=== PATIENT | male | born 1965 | race Caucasian/White ===

== ENCOUNTER 2016-06-28 12:32 | Outpatient (CLI) | payer MEDICAID | END 2016-06-28 12:33 | disposition home or self-care (01) | DX: F10.20 Alcohol dependence, uncomplicated (principal); I10 Essential (primary) hypertension; Z11.59 Encounter for screening for other viral diseases ==

== ENCOUNTER 2017-02-08 18:21 | Inpatient (IN) | payer MEDICAID ==
[2017-02-08] MEDS ORDERED: MAGNESIUM SULFATE 2 GRAM 50 ML IV STA (19:08)
[2017-02-08] MEDS ORDERED: MULTIVITAMIN 10 ML in SODIUM CHLORIDE 0.9% 1,000 ML IV STA (19:08)
[2017-02-08] MEDS ORDERED: LORazepam 2 MG/ML SYRINGE IVP STA ×3 (19:08→22:09)
[2017-02-08] MEDS ORDERED: THIAMINE INJ 100 MG, FOLIC ACID INJ 1 MG in SODIUM CHLORIDE 0.9% 100ML 100 ML IV STA (19:08)
--- NOTE | 2017-02-08 19:10 | ED Physician Documentation ---
History of Present Illness - Stated complaint Stated Complaint: ALCOHOL WITHDRAWAL - Chief complaint Chief Complaint: General - History obtained from History obtained from: Patient - History of Present Illness Timing: Other (He has been drinking heavily the last week or so, he does have a history of alcoholism. He has been drinking 20-40 beers a day. He presents feeling frustrated and wanting options for detoxification. Last drink was about 2 hours ago. He has been vomiting but no blood from either end and no dark or tarry stools.) Review of Systems Ten Systems: 10 systems reviewed and negative Constitutional: reports: Fatigue. denies: Fever, Chills Nose: denies: Rhinorrhea / runny nose, Congestion Throat: denies: Sore throat Cardiac: denies: Chest pain / pressure, Palpitations Respiratory: denies: Dyspnea, Cough PD PAST MEDICAL HISTORY - Past Medical History Past Medical History: No - Past Surgical History Past Surgical History: No - Present Medications Home Medications: Ambulatory Orders Medication Instructions Recorded Confirmed No Known Home Medications [No 02/08/17 02/08/17 Known Home Medications] - Allergies Allergies/Adverse Reactions: Allergies Allergy/AdvReac Type Severity Reaction Status Date / Time No Known Drug Allergies Allergy Verified 02/08/17 18:27 - Social History Does the pt smoke?: Yes Smoking Status: Current every day smoker Does the pt drink ETOH?: Yes ETOH Use: Wine, Beer Does the pt have substance abuse?: Yes Substance Use and Type: Marijuana - Family History Family history: reports: Non contributory PD ED PE NORMAL - Vitals Vital signs reviewed: Yes - General General: Alert and oriented X 3, No acute distress, Other (Hypertensive and tachycardic, mildly shaky despite slurred speech) - HEENT HEENT: PERRL, EOMI, Other (Sclera are anicteric and normal pallor) - Neck Neck: Supple, no meningeal sign, No bony TTP - Cardiac Cardiac: No murmur, Other (Tachycardic but regular, no murmur) - Respiratory Respiratory: No respiratory distress, Clear bilaterally - Abdomen Abdomen: Soft, Non tender - Back Back: No CVA TTP, No spinal TTP - Derm Derm: Normal color, Warm and dry - Extremities Extremities: No deformity, No tenderness to palpate, No edema, No calf tenderness / cord - Neuro Neuro: Alert and oriented X 3, Normal speech - Psych Psych: Normal mood, Normal affect Results - Vitals Vitals: Vital Signs - 24 hr 02/08/17 02/08/17 02/08/17 18:23 19:02 19:25 Temperature 36.8 C Heart Rate 114 H 122 H 167 H Respiratory 24 20 24 Rate Blood Pressure 195/111 H 181/104 H 161/72 H O2 Saturation 98 98 96 02/08/17 02/08/17 02/08/17 19:34 19:49 20:10 Temperature Heart Rate 177 H 160 H 170 H Respiratory 16 16 16 Rate Blood Pressure 151/70 H 152/122 H 148/87 H O2 Saturation 96 100 99 02/08/17 02/08/17 20:29 20:51 Temperature Heart Rate 108 H 11 L Respiratory 16 17 Rate Blood Pressure 166/89 H 168/92 H O2 Saturation 98 98 Oxygen O2 Source Room air - EKG (time done) 1951 Rate: Rate (enter#) (160) Rhythm: Atrial fibrillation [place]: Normal Ischemia: Non specific changes (lateral ST depression, prob rate related and long QT 508msec) Computer interpretation: Agree with computer 2021 Rate: Rate (enter#) (113) Rhythm: Sinus tachycardia [place]: Normal Intervals: Normal HI, Prolonged QT QRS: Normal Computer interpretation: Agree with computer - Labs Labs: Laboratory Tests 02/08/17 02/08/17 02/08/17 18:45 18:45 18:45 WBC 23.0 H RBC 5.13 Hgb 16.3 Hct 47.8 MCV 93.1 MCH 31.7 H MCHC 34.1 RDW 13.1 Plt Count 277 MPV 6.7 L Neut # Not Reportable Lymph # Not Reportable Coal # Not Reportable Eos # Not Reportable Baso # Not Reportable Absolute Nucleated RBC Not Reportable Band Neuts % (Manual) Not Reportable Nucleated RBCs Not Reportable Manual Slide Review Indicated Platelet Estimate NORMAL (130-450,000) Platelet Morphology NORMAL APPEARANCE RBC Morph Micro Appear NORMAL APPEARANCE PT 11.1 INR 1.0 Sodium 128 L Potassium 3.4 L Chloride 76 L* Carbon Dioxide 32 Anion Gap 20.0 H BUN 10 Creatinine 0.8 Estimated GFR (MDRD) 102 Glucose 124 H Calcium 9.4 Magnesium 2.2 Total Bilirubin 1.2 H AST 39 ALT 25 Alkaline Phosphatase 80 Troponin I Total Protein 8.8 H Albumin 5.0 Globulin 3.8 Albumin/Globulin Ratio 1.3 Lipase 20 L TSH Urine Opiates Screen Ur Oxycodone Screen Urine Methadone Screen Ur Propoxyphene Screen Ur Barbiturates Screen Ur Tricyclics Screen Ur Phencyclidine Scrn Ur Amphetamine Screen U Methamphetamines Scrn U Benzodiazepines Scrn Urine Cocaine Screen U Cannabinoids Screen Ethyl Alcohol 169.5 02/08/17 02/08/17 02/08/17 18:45 18:45 20:44 WBC RBC Hgb Hct MCV MCH MCHC RDW Plt Count MPV Neut # Lymph # Coal # Eos # Baso # Absolute Nucleated RBC Band Neuts % (Manual) Nucleated RBCs Manual Slide Review Platelet Estimate Platelet Morphology RBC Morph Micro Appear PT INR Sodium Potassium Chloride Carbon Dioxide Anion Gap BUN Creatinine Estimated GFR (MDRD) Glucose Calcium Magnesium Total Bilirubin AST ALT Alkaline Phosphatase Troponin I < 0.04 Total Protein Albumin Globulin Albumin/Globulin Ratio Lipase TSH 0.62 Urine Opiates Screen NEGATIVE Ur Oxycodone Screen NEGATIVE Urine Methadone Screen NEGATIVE Ur Propoxyphene Screen NEGATIVE Ur Barbiturates Screen NEGATIVE Ur Tricyclics Screen NEGATIVE Ur Phencyclidine Scrn NEGATIVE Ur Amphetamine Screen NEGATIVE U Methamphetamines Scrn NEGATIVE U Benzodiazepines Scrn NEGATIVE Urine Cocaine Screen NEGATIVE U Cannabinoids Screen POSITIVE H Ethyl Alcohol Procedures - Procedural sedation Sedation prep: Informed consent, Time out completed, PE performed, AHA 2 - mild disease Sedation medications: propofol (80mg IVP x 2) Patient status during sedation: Responds to tactile, Vitals remained stable, Maintained airway, Recovered uneventfully Sedation recovery: Recovered uneventfully - Cardioversion 1 Time of attempt: 20:10 Indication: Tachyarrhythmia Risks, benefits, alternatives explained to: Pt Prep: IV, O2, vehicle monitor technician, Pulse ox, Airway equip Meds: Propofol (80mg IVP x2) CS via: Pads, AP approach Sync: 100j Post cardioversion rhythm: NSR Performed by: ED MD MEDICAL DECISION MAKING - ED course ED course: On initial evaluation he was tachycardic and hypertensive, but was a sinus tachycardia on the monitor rate of about 110-120. He was ordered to have a banana bag, Ativan, labs. Shortly thereafter, about 7:15 PM he became very tachycardic, near 200. It was a narrow complex tachycardia. Vagal maneuvers had no effect and he was administered 6 mg then 12 mg of adenosine, after 12 mg of adenosine I was able to identify atrial fibrillation as the underlying rhythm and he was administered diltiazem IV. He was given more doses of diltiazem IV which did not result in rate control but brought him down to the 160 range, after informed consent he was electrically cardioverted with sinus rhythm after this first attempt, call to the hospitalist, Dr. Ch for admission at 8:19 PM. - Critical Care Time(min): 48 Time Includes: Direct patient care, Review records, Reassess patient, Document care, Coordinate care, Medical consult, Family consult for tx dec Procedures included in critical care time: Peripheral IV Procedures excluded from critical care time: EKG Departure - Departure Disposition: 66 [facility] DC/Xfer Clinical Impression: Rapid atrial fibrillation, Hypochloremia Alcohol withdrawal Qualifiers: Complication of substance-induced condition: uncomplicated Qualified Code(s): F10.230 - Alcohol dependence with withdrawal, uncomplicated Condition: Serious
[2017-02-08] MEDS ORDERED: LORazepam 2 MG/ML SYRINGE ONE ×2 (19:15→21:38)
[2017-02-08] MEDS ORDERED: ADENOSINE 6 MG/2 ML VIAL IVP ONE (19:18)
[2017-02-08] MEDS ORDERED: diltiaZEM INJ 5 MG/ML VIAL IVP STA ×3 (19:18→19:36)
[2017-02-08] MEDS ORDERED: ADENOSINE 6 MG/2 ML VIAL IVP STA ×2 (19:18)
[2017-02-08 19:20] LABS: BASOPHILS % (AUTO) 0.1 %; HCT - HEMATOCRIT 47.8 % (42.0-52.0); HGB - HEMOGLOBIN 16.3 g/dL (14.0-18.0); LYMPHOCYTES % (AUTO) 5.1 %; MEAN CORPUSCULAR HEMOGLOBIN 31.7 pg (27.0-31.0); MEAN CORPUSCULAR HGB CONC 34.1 g/dL (32.0-36.0); MEAN CORPUSCULAR VOLUME 93.1 fL (80.0-94.0); MEAN PLATELET VOLUME 6.7 fL (7.4-11.4); MONOCYTES % (AUTO) 4.7 %; NEUTROPHILS % (AUTO) 90.1 %; RED BLOOD COUNT 5.13 10^6/uL (4.70-6.10); RED CELL DISTRIBUTION WIDTH 13.1 % (12.0-15.0)
[2017-02-08] MEDS ORDERED: diltiaZEM INJ 5 MG/ML VIAL ONE ×2 (19:22→19:49)
[2017-02-08] MEDS ORDERED: SODIUM CHLORIDE FLUSH 0.9% 10 ML SYRINGE IVP ONE (19:23)
[2017-02-08 19:26] LABS: PT - PROTHROMBIN TIME 11.1 secs (9.9-12.6)
[2017-02-08] MEDS ORDERED: MAGNESIUM SULFATE 2 GRAM 50 ML IV ONE (19:32)
[2017-02-08 19:34] LABS: ALBUMIN/GLOBULIN RATIO 1.3 (1.0-2.2); BILIRUBIN,TOTAL 1.2 mg/dL (0.2-1.0); CALCIUM 9.4 mg/dL (8.5-10.3); CREATININE 0.8 mg/dL (0.6-1.2); MAGNESIUM 2.2 mg/dL (1.7-2.8); POTASSIUM 3.4 mmol/L (3.5-5.0); TOTAL PROTEIN 8.8 g/dL (6.7-8.2)
[2017-02-08 19:48] LABS: PLATELET ESTIMATE, MANUAL NORMAL (130-450,000) (NORMAL); PLATELET MORPHOLOGY NORMAL APPEARANCE (NORMAL)
[2017-02-08 19:49] LABS: NP AUTO DIFFERENTIAL? NO; NP MAN DIFFERENTIAL? YES
[2017-02-08] MEDS ORDERED: PROPOFOL 200 MG/20 ML VIAL IVP ONE (20:01)
[2017-02-08] MEDS ORDERED: THIAMINE 100 MG/1 ML 2 ML MDV ONE (20:01)
[2017-02-08] MEDS ORDERED: PROPOFOL 200 MG/20 ML VIAL IVP STA (20:16)
[2017-02-08] MEDS ORDERED: PROMETHAZINE INJ 25 MG in SODIUM CHLORIDE 0.9% 50 ML IV STA (20:41)
[2017-02-08] MEDS ORDERED: PROMETHAZINE 25 MG/1 ML VIAL ONE (20:48)
[2017-02-08] MEDS ORDERED: POTASSIUM CHLOR 20 MEQ/100 ML 100 ML IV SCH (21:55)
[2017-02-08] MEDS ORDERED: diazePAM 5 MG TABLET PO PRN (21:58)
[2017-02-08] MEDS ORDERED: TEMAZEPAM 15 MG CAPSULE PO PRN (22:03)
[2017-02-08] MEDS ORDERED: PROMETHAZINE 25 MG/1 ML VIAL IV PRN (22:03)
[2017-02-08] MEDS ORDERED: ASPIRIN 325 MG TABLET PO SCH (22:10)
--- NOTE | 2017-02-08 23:22 | HISTORY & PHYSICAL EXAMINATION ---
DATE OF ADMISSION: 02/08/2017 CHIEF COMPLAINT: Abdominal pain and going into alcohol withdrawal. HISTORY OF PRESENT ILLNESS: The patient is a 51-year-old white male with past medical history of longstanding alcohol abuse, who presented to [facility] complaining of going into alcohol withdrawal. The patient reported that he has been drinking since age 14. He participated in a detox program about 20 years ago. Since then, he has been drinking on and off. Started to drink heavily about a week ago and then he stopped a few days ago, he developed shakes, anxiety, and recognized symptoms of alcohol withdrawal. On further interview, the patient reported having chest discomfort and abdominal pain as well. He has no history of heart disease. As far as his alcohol consumption, he admitted to drinking about 40 beers daily. Upon presenting to the ER the patient appeared shaky and anxious. Initially he was hypertensive with blood pressure 195/111. His heart rate was 115. During the ER stay, his heart rate increased to the 200 range. Initially he was thought to have SVT, received vagal maneuvers without any effect on his heart rate and subsequently received adenosine as well. Besides all that, his alcohol withdrawal was treated with lorazepam. In any case, adenosine briefly slowed the heart rate and at that time monitor showed atrial fibrillation. Therefore, the patient was given diltiazem. Subsequently, his heart rate remained high, although his blood pressure never dropped below 150. The ER physician decided to do electric cardioversion. After cardioversion the patient remained stable, and when I was at the bedside, his heart rate was around 120. During my exam, the patient appeared somnolent with altered mental status and other than the above-listed symptoms, he provided no further history. Reviewing the ER record, the patient had significant electrolyte abnormalities including sodium of 128, chloride 76. Potassium was 3.4. White blood cell count was elevated at 23. Notably, initial troponin was negative. Urine toxicology was positive for cannabinoid. Alcohol level was 169. TSH was unremarkable. EKG showed no acute ischemic sign. The EKG I reviewed showed a heart rate of 160. Possibly SVT versus atrial fibrillation. PAST MEDICAL HISTORY: Chronic alcohol use. OUTPATIENT MEDICATIONS: The patient takes no medications. REVIEW OF SYMPTOMS: Please see pertinent positives listed at history of present illness. Notably, the patient was a poor historian. Besides the above-listed symptoms he complained of nausea, was dry heaving during my exam. He fell asleep easily. Reporting no other complaints on a 12-point review. FAMILY HISTORY: Positive for alcohol abuse. Coronary artery disease on the mother's side of the family. SOCIAL HISTORY: The patient smokes marijuana and drinks alcohol since age 14. PHYSICAL EXAMINATION VITAL SIGNS: Heart rate between 100 and 200, blood pressure 150/90, respiratory rate 16, oxygen saturation 99% on 4 liters nasal cannula, 97% on room air. GENERAL: The patient is a well-developed male who appeared somnolent, had flushed face, and had been dry heaving during my exam. CARDIOVASCULAR: S1, S2 regular fast rate. RESPIRATORY: Clear to auscultation without wheezes or crackles. ABDOMEN: Soft, benign with mild epigastric tenderness. No guarding, no rebound. LYMPH: No lymphedema. MUSCULOSKELETAL: Appeared atraumatic. SKIN: Flushed face, diaphoretic, no rash. No jaundice. NEUROLOGIC: The patient was somnolent and fell asleep easily during my exam, but when aroused, he was alert and answered questions appropriately. Neurologically, nonfocal. PSYCH: Cooperative, anxious. ASSESSMENT AND PLAN/ACTIVE ISSUES/DIAGNOSES AND ORDERS 1. Uncontrolled hypertension with tachyarrhythmia. Notably, the patient initially had supraventricular tachycardia, perhaps he had atrial fibrillation as well. In the emergency room he was cardioverted. His hyperdynamic circulation is likely secondary to acute alcohol withdrawal. For now we will control heart rate and blood pressure with propranolol considering the reason being alcohol withdrawal. Regarding the atrial fibrillation, we will check one more set of cardiac markers, notably the first set was negative. Will give one dose of aspirin. The patient will be monitored closely on telemetry. For additional workup we will check an echocardiogram. This patient being a beer drinker for several years, has risk for nonischemic cardiomyopathy. Regarding other issues contributing to atrial fibrillation, electrolytes were abnormal and will be replaced. TSH was unremarkable. 2. Acute, severe alcohol withdrawal, will require ICU admission. Appropriate order set was placed. Alcohol withdrawal orders initiated. Electrolytes are being replaced and laboratories checked daily. 3. Abnormal electrolytes including hyponatremia, hypochloremia, and mild hypokalemia. This is likely secondary to beer drinkers hyponatremia. We will replace electrolytes and repeat laboratories. Notably, magnesium was replaced as well. 4. Regarding patient complaining of mild epigastric pain, this is likely secondary to alcoholic gastritis. On exam, abdomen was benign. Liver function tests showed minimally elevated total bilirubin, otherwise unremarkable. Lipase was normal as well. 5. Leukocytosis. This is likely reactive; however, in the setting of alcohol withdrawal, patient will have risk for aspiration. Therefore, we will check chest x-ray, and we will send cultures if not already done from the emergency room. 6. Regarding prophylaxis, added proton pump inhibitor for gastrointestinal prophylaxis, and deep venous thrombosis prophylaxis. 7. Regarding possibility of alcoholic gastritis, also added Sucralfate. 8. CODE STATUS IS FULL CODE. Time spent in the care of this patient was 65 minutes. JOB #: [id number] EXT JOB #:[id number]
[2017-02-08 23:25] LABS: CREATINE KINASE MB 8.4 ng/mL (0.6-6.3)
[2017-02-08 23:26] LABS: TROPONIN I < 0.04 ng/mL (<0.49)
[2017-02-08] MEDS: PROPRANOLOL 10 MG TABLET PO SCH (23:32)
[2017-02-08] MEDS: PANTOPRAZOLE 40 MG TABLET PO SCH (23:32)
[2017-02-08] MEDS: chlordiazePOXIDE 25 MG CAPSULE PO SCH (23:34)
[2017-02-08 23:39] LABS: PT - PROTHROMBIN TIME 10.9 secs (9.9-12.6)
[2017-02-08] MEDS: NS W/20 MEQ KCL 1,000 ML IV SCH (23:59)
--- NOTE | 2017-02-09 | XRAY Preliminary Report ---
Exam: XR Chest 2 View PA/LAT IMPRESSION: No acute cardiopulmonary disease seen. [facility] SITE ID: [id number]
--- NOTE | 2017-02-09 00:03 | XRAY Report ---
EXAM: CHEST RADIOGRAPHY EXAM DATE: 02/08/2017 11:14 PM. CLINICAL HISTORY: Question aspiration. COMPARISON: None. TECHNIQUE: 2 views. FINDINGS: Lungs/Pleura: No focal opacities evident. No pleural effusion. No pneumothorax. Normal volumes. Mediastinum: Heart and mediastinal contours are unremarkable. IMPRESSION: No acute cardiopulmonary disease seen. [facility] Referring Provider Line: [phone] SITE ID: [id number]
[2017-02-09] MEDS: LORazepam 2 MG/ML SYRINGE IVP PRN ×3 (00:31→09:15)
[2017-02-09 05:34] LABS: BASOPHILS % (AUTO) 0.2 %; HCT - HEMATOCRIT 42.6 % (42.0-52.0); HGB - HEMOGLOBIN 14.6 g/dL (14.0-18.0); LYMPHOCYTES # (AUTO) 0.9 10^3/uL (1.5-3.5); LYMPHOCYTES % (AUTO) 6.2 %; MEAN CORPUSCULAR HEMOGLOBIN 32.3 pg (27.0-31.0); MEAN CORPUSCULAR HGB CONC 34.4 g/dL (32.0-36.0); MEAN PLATELET VOLUME 6.8 fL (7.4-11.4); MONOCYTES # (AUTO) 0.7 10^3/uL (0.0-1.0); MONOCYTES % (AUTO) 4.7 %; NEUTROPHILS # (AUTO) 12.7 10^3/uL (1.5-6.6); NEUTROPHILS % (AUTO) 88.9 %; NUCLEATED RED BLOOD CELLS AUTO 0.2 /100WBC; RED BLOOD COUNT 4.53 10^6/uL (4.70-6.10); RED CELL DISTRIBUTION WIDTH 13.4 % (12.0-15.0); UNCORRECTED WHITE BLOOD COUNT 14.2 x10^3/uL; WHITE BLOOD COUNT 14.2 x10^3/uL (4.8-10.8)
[2017-02-09] MEDS: PANTOPRAZOLE 40 MG TABLET PO SCH ×2 (05:40→15:18)
[2017-02-09] MEDS: chlordiazePOXIDE 25 MG CAPSULE PO SCH ×4 (05:40→23:34)
[2017-02-09] MEDS: SODIUM CHLORIDE FLUSH 0.9% 10 ML SYRINGE IVP PRN (05:43)
[2017-02-09] MEDS: SODIUM CHLORIDE FLUSH 0.9% 10 ML SYRINGE IVP SCH ×3 (05:43→21:03)
[2017-02-09 05:52] LABS: ALBUMIN/GLOBULIN RATIO 1.3 (1.0-2.2); BILIRUBIN,TOTAL 2.3 mg/dL (0.2-1.0); CALCIUM 8.4 mg/dL (8.5-10.3); CREATININE 0.8 mg/dL (0.6-1.2); PHOSPHORUS 3.1 mg/dL (2.5-4.6); POTASSIUM 3.2 mmol/L (3.5-5.0)
[2017-02-09] MEDS ORDERED: POTASSIUM CHLORIDE 20 MEQ TABLET PO ONE (06:00)
[2017-02-09 06:24] LABS: CALCIUM, IONIZED 1.01 mmol/L (1.15-1.33); VBG PH 7.533 (7.31-7.41)
[2017-02-09] MEDS: NS W/20 MEQ KCL 1,000 ML IV SCH ×3 (06:24→21:21)
[2017-02-09] MEDS: SUCRALFATE 1 GM/10 ML UDC PO SCH ×4 (06:24→21:03)
[2017-02-09] MEDS ORDERED: CALCIUM GLUCONATE 1,000 MG in SODIUM CHLORIDE 0.9% 50 ML IV SCH ×2 (06:38→08:00)
[2017-02-09] MEDS ORDERED: PROMETHAZINE 25 MG/1 ML VIAL IM PRN (07:37)
[2017-02-09] MEDS: THIAMINE 100 MG TABLET PO SCH (08:38)
[2017-02-09] MEDS: PRENATAL VITAMIN TABLET PO SCH (08:38)
[2017-02-09] MEDS: ENOXAPARIN 40 MG/0.4 ML SYRINGE SUBQ SCH (08:38)
[2017-02-09] MEDS: PROPRANOLOL 10 MG TABLET PO SCH (08:38)
[2017-02-09] MEDS ORDERED: POTASSIUM CHLOR 20 MEQ/100 ML 100 ML IV SCH (09:00)
[2017-02-09] MEDS: ONDANSETRON 4 MG/2 ML VIAL IVP PRN (09:02)
[2017-02-09] MEDS: NICOTINE 14 MG PATCH TOP SCH (14:49)
--- NOTE | 2017-02-09 17:12 | PROVIDER PROGRESS NOTE ---
Assessment/Plan - Problem List (1) Alcohol withdrawal Qualifiers: Complication of substance-induced condition: uncomplicated Qualified Code(s ): F10.230 - Alcohol dependence with withdrawal, uncomplicated Assessment/Plan: Pt on Librium during withdrawl. Pt is arousable and able to take diet and po meds. Will continue iv fluids given tachycardia at rest. Will change Propranolol to a longer acting B-linette. Continue K replacement and Thiamine, Folate. The mother confirms that Pt is wanting to be transferred to an Alcohol Detox unit, after he is medically cleared. (2) Rapid atrial fibrillation Assessment/Plan: No recurrence of Afib after Cardioverted in ER yesterday. Normal troponins and TSH. Echo shows low-normal LVEF. Etiology may be alcohol binge drinking (I spoke to his mother who confirmed that Pt was drinking 20-40 beers/day and taking nearly no solids for the past 7- 10 days) The patient's CHADS score is 1 (HTN), and is on ASA now. Will check a free T4. Will change Propranolol to a longer acting B-linette. Pt can be transferred to a Med-Surg telemetry bed. (3) HTN (hypertension) Qualifiers: Hypertension type: unspecified Qualified Code(s): I10 - Essential (primary ) hypertension Assessment/Plan: Possibly due to alcohol withdrawal vs Essential HTN. BP has improved with sedation and low doses of B-linette. (4) Alcoholic gastritis Qualifiers: Chronicity: unspecified Assessment/Plan: Presumed, due to presentation with binging. Continue Carafate and H2 blockers. - Current Meds Current Meds: Current Medications Generic Name Dose Route Start Last Admin Trade Name Freq PRN Reason Stop Dose Admin Chlordiazepoxide HCl 50 mg 02/09/17 00:00 02/09/17 12:02 Librium PO 50 mg Q6HR ALLEN Administration Enoxaparin Sodium 40 mg 02/09/17 09:00 02/09/17 08:38 Lovenox SUBQ 40 mg DAILY ALLEN Administration Potassium Chloride/Sodium Chloride 1,000 mls @ 125 mls/hr 02/08/17 22:00 13:41 Normal Saline 0.9% W/20 Meq Kcl IV 125 mls/hr .Q8H ALLEN Administration Lorazepam 1 mg 02/08/17 21:58 02/09/17 09:15 Ativan Inj IVP 1 mg Q30M PRN Administration CIWA > 8 Protocol Nicotine 1 patch 02/09/17 14:30 02/09/17 14:49 Nicoderm TOP 1 patch DAILY ALLEN Administration Ondansetron HCl 4 mg 02/08/17 22:03 02/09/17 09:02 Zofran Inj IVP 4 mg Q6HR PRN Administration Nausea / Vomiting Pantoprazole Sodium 40 mg 02/08/17 23:00 02/09/17 15:18 Protonix PO 40 mg BIDAC ALLEN Administration Multivit/Folic Acid/Iron 1 tab 02/09/17 09:00 02/09/17 08:38 Trinatal Rx 1 PO 1 tab DAILY ALLEN Administration Propranolol HCl 20 mg 02/08/17 23:00 02/09/17 08:38 Inderal PO 20 mg BID ALLEN Administration Sodium Chloride 10 ml 02/08/17 22:03 02/09/17 05:43 Normal Saline Flush 0.9% IVP 10 ml PRN PRN Administration NEEDED PER PROVIDER ORDERS Sodium Chloride 10 ml 02/09/17 06:00 02/09/17 13:42 Normal Saline Flush 0.9% IVP 10 ml Q8HR ALLEN Administration Sucralfate 1 gm 02/09/17 07:00 02/09/17 15:19 Carafate PO 1 gm 0700,1100,1600,2200 ALLEN Administration Thiamine HCl 100 mg 02/09/17 09:00 02/09/17 08:38 Vitamin B-1 PO 100 mg DAILY ALLEN Administration - Lab Result Fish Bone Diagrams: 02/09/17 04:43 02/09/17 04:43 - Additional Planning My Orders: My Active Orders 02/09/17 14:28 Telemetry (24 Hour) [RC] Q4HR 02/09/17 14:30 Nicotine 14 mg Patch [Nicoderm] 1 patch TOP DAILY 02/10/17 05:00 BMP - BASIC METABOLIC PANEL [CHEM] DAILYLAB Subjective - Subjective Patient Reports: No Complaints Nursing Reports: No Complaints, Sedated, Other Objective Vital Signs: Vital Signs - 24 hr 02/08/17 02/08/17 02/08/17 22:22 22:43 23:20 Temperature 37.5 C 37.3 C Heart Rate 126 H Heart Rate [ 102 H 111 H Monitoring electrodes] Respiratory 21 17 20 Rate Blood Pressure 158/87 H Blood Pressure 140/88 H [Left Brachial artery] Blood Pressure 132/77 H [Right] O2 Saturation 97 96 98 02/09/17 02/09/17 02/09/17 00:00 01:00 02:10 Temperature Heart Rate Heart Rate [ 90 87 87 Monitoring electrodes] Respiratory 17 19 18 Rate Blood Pressure Blood Pressure 139/93 H 126/71 150/89 H [Left Brachial artery] Blood Pressure 126/71 150/89 H [Right] O2 Saturation 97 95 95 02/09/17 02/09/17 02/09/17 03:00 04:00 05:00 Temperature Heart Rate Heart Rate [ 81 90 81 Monitoring electrodes] Respiratory 17 26 H 18 Rate Blood Pressure Blood Pressure 140/85 H 129/78 131/93 H [Left Brachial artery] Blood Pressure 140/85 H 129/78 131/93 H [Right] O2 Saturation 97 96 95 02/09/17 02/09/17 02/09/17 06:00 07:00 08:00 Temperature Heart Rate Heart Rate [ 84 84 77 Monitoring electrodes] Respiratory 14 19 20 Rate Blood Pressure Blood Pressure 145/85 H 142/94 H 155/92 H [Left Brachial artery] Blood Pressure [Right] O2 Saturation 98 97 99 02/09/17 02/09/17 02/09/17 09:00 10:00 11:00 Temperature 37.4 C Heart Rate Heart Rate [ 82 83 80 Monitoring electrodes] Respiratory 16 18 20 Rate Blood Pressure Blood Pressure 138/95 H 123/78 158/89 H [Left Brachial artery] Blood Pressure [Right] O2 Saturation 97 100 97 02/09/17 02/09/17 02/09/17 12:00 13:00 14:00 Temperature Heart Rate Heart Rate [ 73 83 83 Monitoring electrodes] Respiratory 20 20 16 Rate Blood Pressure Blood Pressure 147/97 H 142/85 H 125/72 [Left Brachial artery] Blood Pressure [Right] O2 Saturation 97 98 96 02/09/17 02/09/17 02/09/17 15:00 16:00 16:56 Temperature 37.0 C Heart Rate Heart Rate [ 75 82 83 Monitoring electrodes] Respiratory 18 20 19 Rate Blood Pressure Blood Pressure 144/96 H 140/86 H 145/89 H [Left Brachial artery] Blood Pressure [Right] O2 Saturation 99 96 94 Oxygen O2 Source Room air I&O (Last 24 Hrs): Intake and Output Totals x24h 02/07/17 02/08/17 02/09/17 23:59 23:59 23:59 Intake Total 3168 Output Total 3365 Balance -197 General: Other (Sedated) HEENT: Atraumatic Neck: Supple, No JVD Cardiovascular: Regular rate, No murmurs Respiratory: No respiratory distress Abdomen: Soft Extremities: No edema - Results Results: Laboratory Results WBC 14.2 x10^3/uL (4.8-10.8) H 02/09/17 04:43 RBC 4.53 10^6/uL (4.70-6.10) L 02/09/17 04:43 Hgb 14.6 g/dL (14.0-18.0) 02/09/17 04:43 Hct 42.6 % (42.0-52.0) 02/09/17 04:43 MCV 94.0 fL (80.0-94.0) 02/09/17 04:43 MCH 32.3 pg (27.0-31.0) H 02/09/17 04:43 MCHC 34.4 g/dL (32.0-36.0) 02/09/17 04:43 RDW 13.4 % (12.0-15.0) 02/09/17 04:43 Plt Count 193 10^3/uL (130-450) 02/09/17 04:43 MPV 6.8 fL (7.4-11.4) L 02/09/17 04:43 Neut # 12.7 10^3/uL (1.5-6.6) H 02/09/17 04:43 Lymph # 0.9 10^3/uL (1.5-3.5) L 02/09/17 04:43 Bee # 0.7 10^3/uL (0.0-1.0) 02/09/17 04:43 Eos # 0.0 10^3/uL (0.0-0.7) 02/09/17 04:43 Baso # 0.0 10^3/uL (0.0-0.1) 02/09/17 04:43 Absolute Nucleated RBC 0.03 x10^3/uL 02/09/17 04:43 Band Neuts % (Manual) Not Reportable 02/08/17 18:45 Nucleated RBCs 0.2 /100WBC 02/09/17 04:43 Manual Slide Review Indicated 02/08/17 18:45 Platelet Estimate NORMAL (130-450,000) (NORMAL) 02/08/17 18:45 Platelet Morphology NORMAL APPEARANCE (NORMAL) 02/08/17 18:45 RBC Morph Micro Appear NORMAL APPEARANCE (NORMAL) 02/08/17 18:45 PT 10.9 secs (9.9-12.6) 02/08/17 22:56 INR 1.0 (0.8-1.2) 02/08/17 22:56 VBG pH 7.533 (7.31-7.41) H 02/09/17 06:16 Ionized Calcium 1.01 mmol/L (1.15-1.33) L 02/09/17 06:16 Sodium 132 mmol/L (135-145) L 02/09/17 04:43 Potassium 3.2 mmol/L (3.5-5.0) L 02/09/17 04:43 Chloride 90 mmol/L (101-111) L 02/09/17 04:43 Carbon Dioxide 32 mmol/L (21-32) 02/09/17 04:43 Anion Gap 10.0 (6-13) 02/09/17 04:43 BUN 12 mg/dL (6-20) 02/09/17 04:43 Creatinine 0.8 mg/dL (0.6-1.2) 02/09/17 04:43 Estimated GFR (MDRD) 102 (>89) 02/09/17 04:43 Glucose 97 mg/dL (70-100) 02/09/17 04:43 Calcium 8.4 mg/dL (8.5-10.3) L 02/09/17 04:43 Phosphorus 3.1 mg/dL (2.5-4.6) 02/09/17 04:43 Magnesium 2.5 mg/dL (1.7-2.8) 02/09/17 04:43 Total Bilirubin 2.3 mg/dL (0.2-1.0) H 02/09/17 04:43 AST 29 IU/L (10-42) 02/09/17 04:43 ALT 22 IU/L (10-60) 02/09/17 04:43 Alkaline Phosphatase 64 IU/L (42-121) 02/09/17 04:43 CK-MB (CK-2) 8.4 ng/mL (0.6-6.3) H 02/08/17 22:56 Troponin I < 0.04 ng/mL (<0.49) 02/08/17 22:56 Total Protein 7.0 g/dL (6.7-8.2) 02/09/17 04:43 Albumin 4.0 g/dL (3.2-5.5) 02/09/17 04:43 Globulin 3.0 g/dL (2.1-4.2) 02/09/17 04:43 Albumin/Globulin Ratio 1.3 (1.0-2.2) 02/09/17 04:43 Lipase 20 U/L (22-51) L 02/08/17 18:45 TSH 0.62 uIU/mL (0.34-5.60) 02/08/17 18:45 Free T4 0.90 ng/dL (0.58-1.64) 02/09/17 05:30 Urine Opiates Screen NEGATIVE (NEGATIVE) 02/08/17 20:44 Ur Oxycodone Screen NEGATIVE (NEGATIVE) 02/08/17 20:44 Urine Methadone Screen NEGATIVE (NEGATIVE) 02/08/17 20:44 Ur Propoxyphene Screen NEGATIVE (NEGATIVE) 02/08/17 20:44 Ur Barbiturates Screen NEGATIVE (NEGATIVE) 02/08/17 20:44 Ur Tricyclics Screen NEGATIVE (NEGATIVE) 02/08/17 20:44 Ur Phencyclidine Scrn NEGATIVE (NEGATIVE) 02/08/17 20:44 Ur Amphetamine Screen NEGATIVE (NEGATIVE) 02/08/17 20:44 U Methamphetamines Scrn NEGATIVE (NEGATIVE) 02/08/17 20:44 U Benzodiazepines Scrn NEGATIVE (NEGATIVE) 02/08/17 20:44 Urine Cocaine Screen NEGATIVE (NEGATIVE) 02/08/17 20:44 U Cannabinoids Screen POSITIVE (NEGATIVE) H 02/08/17 20:44 Ethyl Alcohol 169.5 mg/dL 02/08/17 18:45
[2017-02-09] MEDS: MORPHINE 2 MG/ML SYRINGE IVP PRN ×2 (18:41→21:03)
[2017-02-09] MEDS ORDERED: MAG HYDROX/AL HYDROX/SIMETH 30 ML UDC PO PRN (20:07)
[2017-02-09] MEDS: METOPROLOL SUCCINATE 25 MG TABLET PO SCH (21:03)
[2017-02-10] MEDS: ONDANSETRON 4 MG/2 ML VIAL IVP PRN (00:02)
[2017-02-10] MEDS: ACETAMINOPHEN 500 MG TABLET PO PRN ×2 (03:36→17:47)
[2017-02-10] MEDS: NS W/20 MEQ KCL 1,000 ML IV SCH ×3 (05:00→21:24)
[2017-02-10 06:06] LABS: CALCIUM 8.1 mg/dL (8.5-10.3); CREATININE 0.8 mg/dL (0.6-1.2); MAGNESIUM 2.2 mg/dL (1.7-2.8); PHOSPHORUS 2.6 mg/dL (2.5-4.6); POTASSIUM 3.4 mmol/L (3.5-5.0)
[2017-02-10] MEDS: SUCRALFATE 1 GM/10 ML UDC PO SCH ×4 (06:30→21:27)
[2017-02-10] MEDS: PANTOPRAZOLE 40 MG TABLET PO SCH ×2 (06:30→16:28)
[2017-02-10] MEDS: chlordiazePOXIDE 25 MG CAPSULE PO SCH ×3 (06:30→21:23)
[2017-02-10] MEDS: SODIUM CHLORIDE FLUSH 0.9% 10 ML SYRINGE IVP SCH ×3 (06:31→21:24)
[2017-02-10] MEDS: NICOTINE 14 MG PATCH TOP SCH (08:12)
[2017-02-10] MEDS: ENOXAPARIN 40 MG/0.4 ML SYRINGE SUBQ SCH (08:12)
[2017-02-10] MEDS: THIAMINE 100 MG TABLET PO SCH (08:13)
[2017-02-10] MEDS: METOPROLOL SUCCINATE 25 MG TABLET PO SCH ×2 (08:13→21:24)
[2017-02-10] MEDS: PRENATAL VITAMIN TABLET PO SCH (08:13)
[2017-02-10] MEDS: ASPIRIN EC 81 MG TABLET PO SCH (08:13)
[2017-02-10] MEDS: SODIUM CHLORIDE FLUSH 0.9% 10 ML SYRINGE IVP PRN (08:43)
[2017-02-10] MEDS ORDERED: NICOTINE 14 MG PATCH TOP SCH (09:00)
[2017-02-10] MEDS ORDERED: IOPAMIDOL-300 100 ML VIAL ONE (14:45)
[2017-02-10] MEDS ORDERED: IOPAMIDOL-300 100 ML VIAL IVP ONE (15:05)
--- NOTE | 2017-02-10 16:09 | CT Report ---
CT CHEST WITH CONTRAST: 02/10/2017 CLINICAL INDICATION: Odynophagia, evaluate for esophageal varices. TECHNIQUE: Axial CT images of the chest were obtained with 75 mL Isovue-300 intravenously. No previ ous CT is available for comparison. Comparison is made to chest x-ray of 02/08/2017. In accordance with CT protocol optimization, one or more of the following dose reduction techniques w ere utilized for this exam: automated exposure control, adjustment of mA and/or KV based on patient size, or use of iterative reconstructive technique. FINDINGS: The heart and great vessels are unremarkable. There is no evidence of esophageal varices. No hilar or mediastinal lymphadenopathy is present. The lungs demonstrate minimal dependent atelec tasis. No effusion or pneumothorax is present. Osseous structures demonstrate degenerative changes. Limited evaluation of upper abdominal structures demonstrates normal adrenal glands. IMPRESSION: NO EVIDENCE OF ESOPHAGEAL VARICES. JOB #: [id number] [id number] JOB #:[id number]
[2017-02-10] MEDS: MORPHINE 2 MG/ML SYRINGE IVP PRN (17:10)
[2017-02-10] MEDS: GI COCKTAIL 120 ML BOTTLE PO PRN ×2 (17:37→23:41)
[2017-02-11] MEDS: SODIUM CHLORIDE FLUSH 0.9% 10 ML SYRINGE IVP SCH (03:23)
[2017-02-11] MEDS: SODIUM CHLORIDE FLUSH 0.9% 10 ML SYRINGE IVP PRN (05:54)
[2017-02-11] MEDS: NS W/20 MEQ KCL 1,000 ML IV SCH (05:54)
[2017-02-11] MEDS: PANTOPRAZOLE 40 MG TABLET PO SCH (06:00)
[2017-02-11] MEDS: SUCRALFATE 1 GM/10 ML UDC PO SCH (06:00)
[2017-02-11 06:05] LABS: PHOSPHORUS 2.7 mg/dL (2.5-4.6)
[2017-02-11] MEDS: ASPIRIN EC 81 MG TABLET PO SCH (08:30)
[2017-02-11] MEDS: PRENATAL VITAMIN TABLET PO SCH (08:31)
[2017-02-11] MEDS: chlordiazePOXIDE 25 MG CAPSULE PO SCH (08:31)
[2017-02-11] MEDS: NICOTINE 14 MG PATCH TOP SCH (08:31)
[2017-02-11] MEDS: THIAMINE 100 MG TABLET PO SCH (08:31)
[2017-02-11] MEDS: METOPROLOL SUCCINATE 25 MG TABLET PO SCH (08:31)
--- NOTE | 2017-02-11 08:57 | PROVIDER PROGRESS NOTE ---
Assessment/Plan - Problem List (1) Alcohol withdrawal Qualifiers: Complication of substance-induced condition: uncomplicated Qualified Code(s ): F10.230 - Alcohol dependence with withdrawal, uncomplicated Assessment/Plan: Continue tapering Librium (2) Rapid atrial fibrillation Assessment/Plan: No further Afib with RVR. I suspect this was Alcohol-induced Afib. No ASA due to gastritis symptoms. (3) HTN (hypertension) Qualifiers: Hypertension type: unspecified Qualified Code(s): I10 - Essential (primary ) hypertension Assessment/Plan: Continue present meds. (4) Alcoholic gastritis Qualifiers: Chronicity: unspecified Assessment/Plan: Continue present plan. - Current Meds Current Meds: Current Medications Generic Name Dose Route Start Last Admin Trade Name Freq PRN Reason Stop Dose Admin Acetaminophen 1,000 mg 02/10/17 02:24 02/10/17 17:47 Tylenol PO 1,000 mg Q8HR PRN Administration Pain or Fever > 38C (100.4F) Al Hydroxide/Mg Hydroxide 30 ml 02/09/17 20:07 02/09/17 21:03 Mylanta Plus PO 30 ml Q4HR PRN Administration INDIGESTION Aspirin 162 mg 02/10/17 09:00 02/11/17 08:30 Ecotrin PO 162 mg DAILY ALLEN Administration Chlordiazepoxide HCl 50 mg 02/10/17 21:00 02/11/17 08:31 Librium PO 50 mg BID ALLEN Administration Lorazepam 1 mg 02/08/17 21:58 02/09/17 09:15 Ativan Inj IVP 1 mg Q30M PRN Administration CIWA > 8 Protocol Metoprolol Succinate 25 mg 02/09/17 21:00 02/11/17 08:31 Toprol Xl PO 25 mg BID ALLEN Administration Morphine Sulfate 2 mg 02/08/17 22:03 02/10/17 17:10 Morphine IVP 2 mg Q2H PRN Administration Pain 8 to 10 Multi-Ingredient Mouthwash/Gargle 30 ml 02/09/17 20:06 02/10/17 23:41 PO 30 ml QID PRN Administration Heartburn Nicotine 1 patch 02/09/17 14:30 02/11/17 08:31 Nicoderm TOP Not Given DAILY ALLEN Ondansetron HCl 4 mg 02/08/17 22:03 02/10/17 00:02 Zofran Inj IVP 4 mg Q6HR PRN Administration Nausea / Vomiting Pantoprazole Sodium 40 mg 02/08/17 23:00 02/11/17 06:00 Protonix PO 40 mg BIDAC ALLEN Administration Multivit/Folic Acid/Iron 1 tab 02/09/17 09:00 02/11/17 08:31 Trinatal Rx 1 PO 1 tab DAILY ALLEN Administration Sodium Chloride 10 ml 02/08/17 22:03 02/11/17 05:54 Normal Saline Flush 0.9% IVP 10 ml PRN PRN Administration NEEDED PER PROVIDER ORDERS Sodium Chloride 10 ml 02/09/17 06:00 02/11/17 03:23 Normal Saline Flush 0.9% IVP 10 ml Q8HR ALLEN Administration Sucralfate 1 gm 02/09/17 07:00 02/11/17 06:00 Carafate PO 1 gm 0700,1100,1600,2200 ALLEN Administration Temazepam 15 mg 02/08/17 22:03 02/10/17 23:48 Restoril PO 15 mg QPM PRN Administration Insomnia Thiamine HCl 100 mg 02/09/17 09:00 02/11/17 08:31 Vitamin B-1 PO 100 mg DAILY ALLEN Administration - Lab Result Fish Bone Diagrams: 02/09/17 04:43 02/10/17 05:24 - Additional Planning My Orders: My Active Orders 02/10/17 09:00 Aspirin EC [Ecotrin] 162 mg PO DAILY 02/10/17 21:00 chlordiazePOXIDE [Librium] 50 mg PO BID 02/11/17 Nutrition Consult [CONS] Routine Subjective - Subjective Patient Reports: Resting Comfortably (THIS IS A LATE ENTRY FOR VISIT DONE ) Nursing Reports: No Complaints Objective Vital Signs: Vital Signs - 24 hr 02/10/17 02/10/17 02/10/17 12:06 15:20 19:16 Temperature 36.4 C L 37.1 C 37.0 C Heart Rate [ 70 87 83 Monitoring electrodes] Respiratory 16 17 16 Rate Blood Pressure 178/97 H 135/88 H 145/80 H [Left Brachial artery] O2 Saturation 100 96 97 02/11/17 02/11/17 02/11/17 00:12 04:51 08:33 Temperature 36.8 C 36.5 C 36.4 C L Heart Rate [ 70 63 82 Monitoring electrodes] Respiratory 16 16 18 Rate Blood Pressure 180/90 H 167/96 H 173/104 H [Left Brachial artery] O2 Saturation 96 100 100 Oxygen O2 Source Room air I&O (Last 24 Hrs): Intake and Output Totals x24h 02/09/17 02/10/17 02/11/17 23:59 23:59 23:59 Intake Total 5305 4685 1117 Output Total 4515 5300 2700 Balance 790 -533 -2954 General: Other (sleeping) HEENT: Mucous membr. moist/pink Neck: Supple Neuro: Other (Lethargic) Cardiovascular: Regular rate Respiratory: No respiratory distress Abdomen: Soft, No tenderness Extremities: No edema - Results Results: Laboratory Results WBC 14.2 x10^3/uL (4.8-10.8) H 02/09/17 04:43 RBC 4.53 10^6/uL (4.70-6.10) L 02/09/17 04:43 Hgb 14.6 g/dL (14.0-18.0) 02/09/17 04:43 Hct 42.6 % (42.0-52.0) 02/09/17 04:43 MCV 94.0 fL (80.0-94.0) 02/09/17 04:43 MCH 32.3 pg (27.0-31.0) H 02/09/17 04:43 MCHC 34.4 g/dL (32.0-36.0) 02/09/17 04:43 RDW 13.4 % (12.0-15.0) 02/09/17 04:43 Plt Count 193 10^3/uL (130-450) 02/09/17 04:43 MPV 6.8 fL (7.4-11.4) L 02/09/17 04:43 Neut # 12.7 10^3/uL (1.5-6.6) H 02/09/17 04:43 Lymph # 0.9 10^3/uL (1.5-3.5) L 02/09/17 04:43 [place] # 0.7 10^3/uL (0.0-1.0) 02/09/17 04:43 Eos # 0.0 10^3/uL (0.0-0.7) 02/09/17 04:43 Baso # 0.0 10^3/uL (0.0-0.1) 02/09/17 04:43 Absolute Nucleated RBC 0.03 x10^3/uL 02/09/17 04:43 Band Neuts % (Manual) Not Reportable 02/08/17 18:45 Nucleated RBCs 0.2 /100WBC 02/09/17 04:43 Manual Slide Review Indicated 02/08/17 18:45 Platelet Estimate NORMAL (130-450,000) (NORMAL) 02/08/17 18:45 Platelet Morphology NORMAL APPEARANCE (NORMAL) 02/08/17 18:45 RBC Morph Micro Appear NORMAL APPEARANCE (NORMAL) 02/08/17 18:45 PT 10.9 secs (9.9-12.6) 02/08/17 22:56 INR 1.0 (0.8-1.2) 02/08/17 22:56 VBG pH 7.533 (7.31-7.41) H 02/09/17 06:16 Ionized Calcium 1.01 mmol/L (1.15-1.33) L 02/09/17 06:16 Sodium 137 mmol/L (135-145) 02/10/17 05:24 Potassium 3.4 mmol/L (3.5-5.0) L 02/10/17 05:24 Chloride 100 mmol/L (101-111) L 02/10/17 05:24 Carbon Dioxide 30 mmol/L (21-32) 02/10/17 05:24 Anion Gap 7.0 (6-13) 02/10/17 05:24 BUN 12 mg/dL (6-20) 02/10/17 05:24 Creatinine 0.8 mg/dL (0.6-1.2) 02/10/17 05:24 Estimated GFR (MDRD) 102 (>89) 02/10/17 05:24 Glucose 114 mg/dL (70-100) H 02/10/17 05:24 Calcium 8.1 mg/dL (8.5-10.3) L 02/10/17 05:24 Phosphorus 2.7 mg/dL (2.5-4.6) 02/11/17 05:35 Magnesium 2.0 mg/dL (1.7-2.8) 02/11/17 05:35 Total Bilirubin 2.3 mg/dL (0.2-1.0) H 02/09/17 04:43 AST 29 IU/L (10-42) 02/09/17 04:43 ALT 22 IU/L (10-60) 02/09/17 04:43 Alkaline Phosphatase 64 IU/L (42-121) 02/09/17 04:43 CK-MB (CK-2) 8.4 ng/mL (0.6-6.3) H 02/08/17 22:56 Troponin I < 0.04 ng/mL (<0.49) 02/08/17 22:56 Total Protein 7.0 g/dL (6.7-8.2) 02/09/17 04:43 Albumin 4.0 g/dL (3.2-5.5) 02/09/17 04:43 Globulin 3.0 g/dL (2.1-4.2) 02/09/17 04:43 Albumin/Globulin Ratio 1.3 (1.0-2.2) 02/09/17 04:43 Lipase 20 U/L (22-51) L 02/08/17 18:45 TSH 0.62 uIU/mL (0.34-5.60) 02/08/17 18:45 Free T4 0.90 ng/dL (0.58-1.64) 02/09/17 05:30 Urine Opiates Screen NEGATIVE (NEGATIVE) 02/08/17 20:44 Ur Oxycodone Screen NEGATIVE (NEGATIVE) 02/08/17 20:44 Urine Methadone Screen NEGATIVE (NEGATIVE) 02/08/17 20:44 Ur Propoxyphene Screen NEGATIVE (NEGATIVE) 02/08/17 20:44 Ur Barbiturates Screen NEGATIVE (NEGATIVE) 02/08/17 20:44 Ur Tricyclics Screen NEGATIVE (NEGATIVE) 02/08/17 20:44 Ur Phencyclidine Scrn NEGATIVE (NEGATIVE) 02/08/17 20:44 Ur Amphetamine Screen NEGATIVE (NEGATIVE) 02/08/17 20:44 U Methamphetamines Scrn NEGATIVE (NEGATIVE) 02/08/17 20:44 U Benzodiazepines Scrn NEGATIVE (NEGATIVE) 02/08/17 20:44 Urine Cocaine Screen NEGATIVE (NEGATIVE) 02/08/17 20:44 U Cannabinoids Screen POSITIVE (NEGATIVE) H 02/08/17 20:44 Ethyl Alcohol 169.5 mg/dL 02/08/17 18:45
--- NOTE | 2017-02-11 09:34 | Discharge Plan ---
Discharge Plan Disposition: 01 Home, Self Care Condition: Fair Prescriptions: Nicotine 14 mg Patch [Nicoderm] 1 patch TOP DAILY #30 patch Pantoprazole [Protonix] 40 mg PO BIDAC #60 tablet diazePAM [Valium] 5 mg PO DAILY #5 tablet Diet: Soft Activity Restrictions: Activity as Tolerated Shower Restrictions: No Driving Restrictions: No Additional Instructions or Follow Up instructions: Do not drink alcohol. Use Mylanta for acid reflux and burning symptoms. No Smoking: If you smoke, Please STOP! Call for help.
[2017-02-11 10:45] VITALS: BP 145/99
--- NOTE | 2017-02-11 17:22 | DISCHARGE SUMMARY ---
DATE OF ADMISSION: 02/08/2017 DATE OF DISCHARGE: 02/11/2017 HOSPITAL COURSE: This is a 51-year-old white male with a negative past medical history except for intermittent heavy alcohol binges. The patient was brought in with altered mental status after beginning to go into withdrawal after he himself abruptly stopped a 10-day alcohol binge where he was drinking up to 40 beers per day and taking nearly no solid food. HOSPITAL COURSE AND DISCHARGE DIAGNOSES: 1. Alcohol withdrawal. The patient required Librium around the clock, which was tapered to low doses over 48 hours during the time of the withdrawal. His mental status improved at the time of discharge. 2. Alcoholic gastritis. As the patient was more awake, he had significant complaints of burning and sharp pain in the entire esophageal area and feelings of "the food is getting stuck." The patient underwent a CT scan of the chest to rule out esophageal varices or ulcer and this showed neither of the 2. There was minimal dependent pulmonary atelectasis and osseous degenerative changes and no other significant findings. The patient was on H2 blockers, Carafate p.o. and Mylanta and GI cocktail (including lidocaine) with some improvement in these symptoms. The patient was discharged with H2 blockers and recommendations for Mylanta use p.r.n.. 3. Hypertension. The patient was felt to have hypertension due to his withdrawal and this was intermittently elevated throughout the admission. A low- salt diet was advised at time of discharge and followup as an outpatient for determining whether he does need treatment for probable essential hypertension. 4. The patient was in atrial flutter and then atrial fibrillation with rapid rate on presentation in the emergency room, which did not respond to IV medications and he was electively cardioverted in the emergency room to sinus rhythm, and then placed in the intensive care unit and then a medical/surgical bed on telemetry for evaluation of any recurrence. There was no recurrence. His troponins were negative, and his echocardiogram showed mild LVH with EF of 50% to 55%. The suspicion was of alcohol induced atrial fibrillation ("holiday heart " as a cause of this atrial fibrillation). The borderline low ejection fraction may be related to atrial fibrillation lasting longer than just the day of admission. Because of his significant presumed gastritis, no aspirin was started on this patient and his CHADS score would be only 1 if he indeed has chronic hypertension, therefore no anticoagulant used. CONDITION AT DISCHARGE: Fair. Recommendations for followup with a primary care doctor and initiation of further alcohol detoxification management and he is interested in Antabuse. JOB #: [id number] EXT JOB #:[id number] MARK
== END 2017-02-11 10:00 | disposition home or self-care (01) | DRG 897 ==
LOC: ED 18:21 → ICU 22:03 → MS2 02-09 16:53
PROVIDERS: ADMIT Internal Medicine; ATTEND Internal Medicine
DX: F10.239 Alcohol dependence with withdrawal, unspecified (principal); I48.92 Unspecified atrial flutter; E87.1 Hypo-osmolality and hyponatremia; I48.91 Unspecified atrial fibrillation; F10.229 Alcohol dependence with intoxication, unspecified; T51.0X4A Toxic effect of ethanol, undetermined, initial encounter; K29.20 Alcoholic gastritis without bleeding; Y90.6 Blood alcohol level of 120-199 mg/100 ml; I10 Essential (primary) hypertension; E87.8 Other disorders of electrolyte and fluid balance, not elsewhere classified; E87.6 Hypokalemia; Z91.89 Other specified personal risk factors, not elsewhere classified; F17.200 Nicotine dependence, unspecified, uncomplicated
CPT/HCPCS: 36415; 71020; 71260; 80048; 80053; 80306; 80320; 82330; 82553; 83690; 83735; 84100; 84439; 84443; 84484; 85025; 85610; 87040; 87150; 92960; 93005; 93306; 94770; 96365; 96366; 96368; 96375; 96376; 99152; 99285; 99291; 99406

== ENCOUNTER 2017-02-15 09:24 | Outpatient (CLI) | payer MEDICAID | END 2017-02-15 09:25 | disposition home or self-care (01) | LOC: RT.S 09:24 | PROVIDERS: ATTEND Nurse Practitioner Family | DX: I48.91 Unspecified atrial fibrillation (principal) | CPT/HCPCS: 93005 ==

== ENCOUNTER 2017-06-14 16:23 | Outpatient (CLI) | payer MEDICAID ==
--- NOTE | 2017-06-15 13:01 | XRAY Report ---
DATE OF SERVICE: 06/14/2017 FOUR-VIEW RIGHT KNEE: 06/14/2017 CLINICAL INDICATION: Pain. FINDINGS: AP, bilateral oblique, lateral views of the right knee demonstrate mild osteoarthritis, with small osteophytes. A small effusion is present. There is no evidence of acute fracture or dislocation. No foreign body is seen in the soft tissues. IMPRESSION: Mild right knee osteoarthritis, with a small effusion. TD: 06/15/2017 13:55
== END 2017-06-14 16:24 | disposition home or self-care (01) ==
LOC: DI 16:23
PROVIDERS: ATTEND Nurse Practitioner Family
DX: M17.11 Unilateral primary osteoarthritis, right knee (principal); M25.461 Effusion, right knee

== ENCOUNTER 2017-06-27 08:27 | Outpatient (CLI) | payer MEDICAID | END 2017-06-27 08:28 | disposition home or self-care (01) | LOC: LAB.S 08:27 | PROVIDERS: ATTEND Nurse Practitioner Family | DX: Z12.5 Encounter for screening for malignant neoplasm of prostate (principal) | CPT/HCPCS: 36415; 84153 ==

== ENCOUNTER 2018-08-07 21:26 | Emergency (ER) | payer OTHER ==
--- NOTE | 2018-08-07 23:27 | ED Physician Documentation ---
History of Present Illness - Stated complaint Stated Complaint: DETOX - Chief complaint Chief Complaint: MHE - History obtained from History obtained from: Patient - History of Present Illness Timing: How many days ago (5 days (August 02)) Pain level max: 0 Pain level now: 0 - Additonal information Additional information: patient requests detox for alcoholism. He says he has been drinking daily since August 02 (5 days ago), "mostly wine" (he says 1 bottle/day) but had bottle of 80- proof liquor that he consumed over past 2 days. He had previously been sober for 18 months. He has been drinking for the last 5 days due to recent of his father. He says he came in at this time because he recognizes he can no longer resist urge to walk to the store and keep buying more alcohol. He has gone through inpatient rehab a few times in the past and desires inpatient rehab at this time. Review of Systems Constitutional: reports: Reviewed and negative Cardiac: reports: Reviewed and negative Respiratory: reports: Reviewed and negative GI: reports: Reviewed and negative : reports: Reviewed and negative PD PAST MEDICAL HISTORY - Past Medical History Past Medical History: Yes Cardiovascular: Hypertension Respiratory: None Endocrine/Autoimmune: None GI: None : None HEENT: None Psych: Depression, Anxiety Musculoskeletal: None Derm: None - Past Surgical History Past Surgical History: No - Present Medications Home Medications: Ambulatory Orders Medication Instructions Recorded Confirmed Disulfiram [Antabuse] 250 mg PO DAILY 08/07/18 08/07/18 Lisinopril 30 mg PO DAILY 08/07/18 08/07/18 Metoprolol Succinate 100 mg PO DAILY 08/07/18 08/07/18 No Known Home Medications 08/07/18 08/07/18 amLODIPine [Norvasc] 5 mg PO DAILY 08/07/18 08/07/18 - Allergies Allergies/Adverse Reactions: Allergies Allergy/AdvReac Type Severity Reaction Status Date / Time No Known Drug Allergies Allergy Verified 08/07/18 22:26 - Social History Does the pt smoke?: Yes Smoking Status: Current every day smoker Does the pt drink ETOH?: Yes ETOH Use: Wine, Liquor Does the pt have substance abuse?: Yes Substance Use and Type: Marijuana - POLST Patient has POLST: No PD ED PE NORMAL - Vitals Vital signs reviewed: Yes - General General: Alert and oriented X 3, No acute distress, Well developed/nourished - HEENT HEENT: Atraumatic, PERRL, EOMI - Cardiac Cardiac: RRR, No murmur - Respiratory Respiratory: No respiratory distress, Clear bilaterally - Abdomen Abdomen: Soft, Non tender - Neuro Neuro: Alert and oriented X 3, 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, No motor deficit, No sensory deficit, Normal speech Eye Opening: Spontaneous Motor: Obeys Commands Verbal: Oriented GCS Score: 15 - Psych Psych: Normal mood, Normal affect Results - Vitals Vitals: Vital Signs - 24 hr 08/07/18 08/08/18 08/08/18 21:34 00:03 06:17 Temperature 36.6 C Heart Rate 93 96 101 H Respiratory 20 16 16 Rate Blood Pressure 137/92 H 146/94 H 137/92 H O2 Saturation 99 98 100 Oxygen O2 Source Room air - Labs Labs: Laboratory Tests 08/07/18 08/08/18 08/08/18 23:45 00:05 00:05 WBC 11.4 H RBC 5.22 Hgb 16.3 Hct 48.4 MCV 92.8 MCH 31.2 H MCHC 33.6 RDW 13.4 Plt Count 354 MPV 6.2 L Neut # (Auto) 9.0 H Lymph # (Auto) 1.7 [place] # (Auto) 0.5 Eos # (Auto) 0.0 Baso # (Auto) 0.2 H Absolute Nucleated RBC 0.01 Nucleated RBC % 0.1 Sodium 139 Potassium 4.2 Chloride 102 Carbon Dioxide 21 Anion Gap 16.0 H BUN 18 Creatinine 0.8 Estimated GFR (MDRD) 102 Glucose 93 Calcium 8.5 Phosphorus 3.4 Magnesium 2.3 Total Bilirubin 0.8 AST 29 ALT 14 Alkaline Phosphatase 75 Total Protein 7.6 Albumin 4.2 Globulin 3.4 Albumin/Globulin Ratio 1.2 Lipase 30 Urine Color YELLOW Urine Clarity CLEAR Urine pH 5.5 Ur Specific [place] 1.020 Urine Protein NEGATIVE Urine Glucose (UA) NEGATIVE Urine Ketones 15 H Urine Occult Blood TRACE-LYSE Urine Nitrite NEGATIVE Urine Bilirubin NEGATIVE Urine Urobilinogen 0.2 (NORMAL) Ur Leukocyte Esterase NEGATIVE Ur Microscopic Review NOT INDICATED Urine Culture Comments NOT INDICATED Urine Opiates Screen NEGATIVE Ur Oxycodone Screen NEGATIVE Urine Methadone Screen NEGATIVE Ur Propoxyphene Screen NEGATIVE Ur Barbiturates Screen NEGATIVE Ur Tricyclics Screen NEGATIVE Ur Phencyclidine Scrn NEGATIVE Ur Amphetamine Screen NEGATIVE U Methamphetamines Scrn NEGATIVE U Benzodiazepines Scrn NEGATIVE Urine Cocaine Screen NEGATIVE U Cannabinoids Screen POSITIVE H Ethyl Alcohol 292.9 PD MEDICAL DECISION MAKING - ED course Complexity details: reviewed results, re-evaluated patient, considered differential, d/w patient ED course: Held in ED for SW consult in AM
[2018-08-07] MEDS ORDERED: FOLIC ACID INJ 1 MG, THIAMINE INJ 100 MG, MAGNESIUM SULFATE 2 GM, MULTIVITAMIN 10 ML in... IV STA ×5 (23:44)
[2018-08-07 23:49] LABS: MUDS CUTOFF CONCENTRATIONS CUTOFF CONC BELOW:
[2018-08-07] MEDS ORDERED: THIAMINE 100 MG/1 ML 2 ML MDV ONE (23:55)
[2018-08-07 23:56] LABS: BILIRUBIN,URINE NEGATIVE (NEGATIVE); GLUCOSE, URINE (UA) NEGATIVE (NEGATIVE); KETONES,URINE (UA) 15 mg/dL (NEGATIVE); LEUKOCYTE ESTERASE, URINE NEGATIVE (NEGATIVE); NITRITE,URINE NEGATIVE (NEGATIVE); OCCULT BLOOD,URINE TRACE-LYSE (NEGATIVE); PH,URINE 5.5 PH (5.0-7.5); PROTEIN,URINE NEGATIVE (NEGATIVE); UROBILINOGEN,URINE 0.2 (NORMAL) E.U./dL (NORMAL)
[2018-08-07 23:59] LABS: CLARITY,URINE CLEAR (CLEAR)
[2018-08-08 00:13] LABS: AMPHETAMINE SCREEN,URINE NEGATIVE (NEGATIVE); COCAINE SCREEN URINE NEGATIVE (NEGATIVE); METHAMPHETAMINES SCREEN, URINE NEGATIVE (NEGATIVE); OPIATE SCREEN, URINE NEGATIVE (NEGATIVE)
[2018-08-08 00:14] LABS: BENZODIAZEPINES SCREEN, URINE NEGATIVE (NEGATIVE); METHADONE SCREEN, URINE NEGATIVE (NEGATIVE); OXYCODONE SCREEN, URINE NEGATIVE (NEGATIVE); PROPOXYPHENE SCREEN, URINE NEGATIVE (NEGATIVE); TRICYCLIC ANTIDEPRESSANT,URINE NEGATIVE (NEGATIVE)
[2018-08-08 00:31] LABS: BASOPHILS # (AUTO) 0.2 10^3/uL (0.0-0.1); BASOPHILS % (AUTO) 1.4 %; EOSINOPHILS % (AUTO) 0.3 %; HGB - HEMOGLOBIN 16.3 g/dL (14.0-18.0); LYMPHOCYTES # (AUTO) 1.7 10^3/uL (1.5-3.5); LYMPHOCYTES % (AUTO) 14.5 %; MEAN CORPUSCULAR HEMOGLOBIN 31.2 pg (27.0-31.0); MEAN CORPUSCULAR HGB CONC 33.6 g/dL (32.0-36.0); MEAN CORPUSCULAR VOLUME 92.8 fL (80.0-94.0); MEAN PLATELET VOLUME 6.2 fL (7.4-11.4); MONOCYTES # (AUTO) 0.5 10^3/uL (0.0-1.0); MONOCYTES % (AUTO) 4.7 %; NEUTROPHILS % (AUTO) 79.1 %; PLT - PLATELET COUNT 354 10^3/uL (130-450); RED BLOOD COUNT 5.22 10^6/uL (4.70-6.10); RED CELL DISTRIBUTION WIDTH 13.4 % (12.0-15.0); WHITE BLOOD COUNT 11.4 x10^3/uL (4.8-10.8)
[2018-08-08 00:37] LABS: ALBUMIN 4.2 g/dL (3.2-5.5); ALBUMIN/GLOBULIN RATIO 1.2 (1.0-2.2); BILIRUBIN,TOTAL 0.8 mg/dL (0.2-1.0); CALCIUM 8.5 mg/dL (8.5-10.3); CREATININE 0.8 mg/dL (0.6-1.2); MAGNESIUM 2.3 mg/dL (1.7-2.8); PHOSPHORUS 3.4 mg/dL (2.5-4.6); TOTAL PROTEIN 7.6 g/dL (6.7-8.2)
[2018-08-08] MEDS ORDERED: LORazepam 2 MG/ML VIAL IVP STA (01:23)
[2018-08-08] MEDS ORDERED: amLODIPine 5 MG TABLET PO STA (10:32)
[2018-08-08] MEDS ORDERED: chlordiazePOXIDE 25 MG CAPSULE PO STA (10:32)
[2018-08-08] MEDS ORDERED: LISINOPRIL 5 MG TABLET PO STA (10:32)
[2018-08-08] MEDS ORDERED: METOPROLOL SUCCINATE 50 MG TABLET PO STA (10:32)
--- NOTE | 2018-08-08 11:18 | ED Physician Documentation ---
ED Addendum - Addendum Addendum: Patient decided he doesn't want to go to rehab at this time. Pt refuses further care at this time. Outpatient resources were given by social work. Patient counseled regarding signs and symptoms for which I believe and urgent re- evaluation would be necessary. Patient with good understanding of and agreement to plan and is comfortable going home at this time This document was made in part using voice recognition software. While efforts are made to proofread this document, sound alike and grammatical errors may occur. Departure - Departure Disposition: 01 Home, Self Care Clinical Impression: Alcoholism Alcohol intoxication Qualifiers: Complication of substance-induced condition: uncomplicated Qualified Code(s): F10.920 - Alcohol use, unspecified with intoxication, uncomplicated Condition: Good Instructions: ED Alcohol Intoxication Follow-Up: Tammy Ramos ARNP [Primary Care Provider] - Within 1 week Comments: You have chosen not to pursue detox and rehab at this time. Please follow-up closely with your doctor as they can also help to get you into rehab from the outpatient side. Return if you worsen or change your mind.
[2018-08-08 11:21] VITALS: BP 140/106
== END 2018-08-08 11:22 | disposition home or self-care (01) ==
LOC: ED 21:26
DX: F10.220 Alcohol dependence with intoxication, uncomplicated (principal); I10 Essential (primary) hypertension; F17.200 Nicotine dependence, unspecified, uncomplicated
CPT/HCPCS: 36415; 80053; 80306; 80320; 81003; 83690; 83735; 84100; 85025; 99283; 99284; A9270; J2060; J3411; 81001; 87086

== ENCOUNTER 2018-08-09 08:09 | Emergency (ER) | payer OTHER ==
--- NOTE | 2018-08-09 08:18 | ED Physician Documentation ---
History of Present Illness - Stated complaint Stated Complaint: ETOH WITHDRAWL - Chief complaint Chief Complaint: General - History obtained from History obtained from: Patient - History of Present Illness Timing: Chronic Pain level max: 0 Pain level now: 0 - Additonal information Additional information: 52-year-old male, long-standing alcoholic, was seen here recently for alcoholism and it was attempted to send him to detox but he change his mind and left. He returns again today stating that he now wants to go to detox. He drank just prior to arrival. No pain at this time. Nothing makes it better or worse Review of Systems Ten Systems: 10 systems reviewed and negative Constitutional: denies: Fever, Chills Ears: denies: Ear pain Nose: denies: Rhinorrhea / runny nose Throat: denies: Sore throat, Swollen tonsils Respiratory: denies: Cough GI: reports: Vomiting (x1 this am) Skin: denies: Rash Musculoskeletal: denies: Neck pain, Back pain Neurologic: denies: Headache PD PAST MEDICAL HISTORY - Past Medical History Cardiovascular: Hypertension Respiratory: None Endocrine/Autoimmune: None GI: None : None HEENT: None Psych: Depression, Anxiety Musculoskeletal: None Derm: None - Past Surgical History Past Surgical History: No - Present Medications Home Medications: Ambulatory Orders Medication Instructions Recorded Confirmed Disulfiram [Antabuse] 250 mg PO DAILY 08/07/18 08/09/18 Lisinopril 40 mg PO DAILY 08/07/18 08/09/18 Metoprolol Succinate 100 mg PO DAILY 08/07/18 08/09/18 amLODIPine [Norvasc] 10 mg PO DAILY 08/07/18 08/09/18 - Allergies Allergies/Adverse Reactions: Allergies Allergy/AdvReac Type Severity Reaction Status Date / Time No Known Drug Allergies Allergy Verified 08/09/18 08:15 - Social History Does the pt smoke?: Yes Smoking Status: Current every day smoker Does the pt drink ETOH?: Yes Does the pt have substance abuse?: Yes - POLST Patient has POLST: No PD ED PE NORMAL - Vitals Vital signs reviewed: Yes - General General: Alert and oriented X 3, No acute distress, Well developed/nourished - HEENT HEENT: PERRL, Moist mucous membranes - Neck Neck: Supple, no meningeal sign - Cardiac Cardiac: RRR, Strong equal pulses - Respiratory Respiratory: No respiratory distress, Clear bilaterally - Abdomen Abdomen: Soft, Non tender, Non distended - Derm Derm: Warm and dry, No rash - Extremities Extremities: No edema - Neuro Neuro: Alert and oriented X 3 - Psych Psych: Normal mood, Normal affect Results - Vitals Vitals: Vital Signs - 24 hr 08/09/18 08/09/18 08/09/18 08:13 10:15 13:52 Temperature 36.2 C L Heart Rate 86 Respiratory 14 Rate Blood Pressure 169/102 H O2 Saturation 98 100 100 08/09/18 13:54 Temperature Heart Rate 92 Respiratory Rate Blood Pressure 152/89 H O2 Saturation Oxygen O2 Source Room air - Labs Labs: Laboratory Tests 08/09/18 08/09/18 08/09/18 08:25 08:25 08:25 WBC 8.8 RBC 5.10 Hgb 15.9 Hct 47.4 MCV 93.0 MCH 31.3 H MCHC 33.6 RDW 13.8 Plt Count 319 MPV 6.1 L Neut # (Auto) 6.2 Lymph # (Auto) 1.8 [place] # (Auto) 0.7 Eos # (Auto) 0.0 Baso # (Auto) 0.1 Absolute Nucleated RBC 0.00 Nucleated RBC % 0.0 Sodium 140 Potassium 3.3 L Chloride 101 Carbon Dioxide 27 Anion Gap 12.0 BUN 9 Creatinine 0.8 Estimated GFR (MDRD) 102 Glucose 122 H Calcium 8.8 Total Bilirubin 1.1 H AST 45 H ALT 18 Alkaline Phosphatase 73 Total Protein 7.9 Albumin 4.5 Globulin 3.4 Albumin/Globulin Ratio 1.3 Lipase 57 H TSH 2.19 Urine Color Urine Clarity Urine pH Ur Specific [place] Urine Protein Urine Glucose (UA) Urine Ketones Urine Occult Blood Urine Nitrite Urine Bilirubin Urine Urobilinogen Ur Leukocyte Esterase Ur Microscopic Review Urine Culture Comments Salicylates < 6.0 Urine Opiates Screen Ur Oxycodone Screen Urine Methadone Screen Ur Propoxyphene Screen Acetaminophen < 10 L Ur Barbiturates Screen Ur Tricyclics Screen Ur Phencyclidine Scrn Ur Amphetamine Screen U Methamphetamines Scrn U Benzodiazepines Scrn Urine Cocaine Screen U Cannabinoids Screen Ethyl Alcohol 191.9 08/09/18 08:25 WBC RBC Hgb Hct MCV MCH MCHC RDW Plt Count MPV Neut # (Auto) Lymph # (Auto) [place] # (Auto) Eos # (Auto) Baso # (Auto) Absolute Nucleated RBC Nucleated RBC % Sodium Potassium Chloride Carbon Dioxide Anion Gap BUN Creatinine Estimated GFR (MDRD) Glucose Calcium Total Bilirubin AST ALT Alkaline Phosphatase Total Protein Albumin Globulin Albumin/Globulin Ratio Lipase TSH Urine Color YELLOW Urine Clarity CLEAR Urine pH 6.0 Ur Specific [place] 1.025 Urine Protein NEGATIVE Urine Glucose (UA) NEGATIVE Urine Ketones NEGATIVE Urine Occult Blood NEGATIVE Urine Nitrite NEGATIVE Urine Bilirubin NEGATIVE Urine Urobilinogen 0.2 (NORMAL) Ur Leukocyte Esterase NEGATIVE Ur Microscopic Review NOT INDICATED Urine Culture Comments NOT INDICATED Salicylates Urine Opiates Screen NEGATIVE Ur Oxycodone Screen NEGATIVE Urine Methadone Screen NEGATIVE Ur Propoxyphene Screen NEGATIVE Acetaminophen Ur Barbiturates Screen NEGATIVE Ur Tricyclics Screen NEGATIVE Ur Phencyclidine Scrn NEGATIVE Ur Amphetamine Screen NEGATIVE U Methamphetamines Scrn NEGATIVE U Benzodiazepines Scrn POSITIVE H Urine Cocaine Screen NEGATIVE U Cannabinoids Screen POSITIVE H Ethyl Alcohol PD MEDICAL DECISION MAKING - ED course Complexity details: reviewed old records, reviewed results, re-evaluated patient, considered differential, d/w patient, d/w pre sales technical consultant ED course: After being in the emergency department for several hours, the patient stated that he had contacted [facility] in [place] for an intake assessment tomorrow so that he can go back to [facility] in [place] where he has been before. Social work contacted [facility] and they do require an assessment from an approved facility for placement. Patient's friend will have him there in the morning. Patient will return if he worsens. He is not suicidal or homicidal at this time. Patient counseled regarding signs and symptoms for which I believe and urgent re-evaluation would be necessary. Patient with good understanding of and agreement to plan and is comfortable going home at this time This document was made in part using voice recognition software. While efforts are made to proofread this document, sound alike and grammatical errors may occur. Departure - Departure Disposition: 01 Home, Self Care Clinical Impression: Alcoholism Alcohol intoxication Qualifiers: Complication of substance-induced condition: uncomplicated Qualified Code(s): F10.920 - Alcohol use, unspecified with intoxication, uncomplicated Condition: Stable Instructions: ED Alcohol Intoxication Comments: You are to go to [facility] in [place] in the morning for your assessment, which they will send to [facility] to help you be [facility]. [facility]. Return if you feel unsafe or like you need more urgent help. Crisis Line and is available to talk to someone [email or web address] is also available to chat with someone online if you prefer. There are also many resources on this website and apps for your phone to help with your mental health You can also text the word START to [phone] to chat with someome via text. Discharge Date/Time: 08/09/18 13:54
[2018-08-09 08:36] LABS: BASOPHILS # (AUTO) 0.1 10^3/uL (0.0-0.1); BASOPHILS % (AUTO) 1.3 %; EOSINOPHILS % (AUTO) 0.5 %; HGB - HEMOGLOBIN 15.9 g/dL (14.0-18.0); LYMPHOCYTES # (AUTO) 1.8 10^3/uL (1.5-3.5); LYMPHOCYTES % (AUTO) 20.3 %; MEAN CORPUSCULAR HEMOGLOBIN 31.3 pg (27.0-31.0); MEAN CORPUSCULAR HGB CONC 33.6 g/dL (32.0-36.0); MEAN PLATELET VOLUME 6.1 fL (7.4-11.4); MONOCYTES # (AUTO) 0.7 10^3/uL (0.0-1.0); MONOCYTES % (AUTO) 7.5 %; NEUTROPHILS # (AUTO) 6.2 10^3/uL (1.5-6.6); NEUTROPHILS % (AUTO) 70.4 %; PLT - PLATELET COUNT 319 10^3/uL (130-450); RED CELL DISTRIBUTION WIDTH 13.8 % (12.0-15.0); WHITE BLOOD COUNT 8.8 x10^3/uL (4.8-10.8)
[2018-08-09 08:52] LABS: ACETAMINOPHEN < 10 ug/mL (10-30); ALBUMIN 4.5 g/dL (3.2-5.5); ALBUMIN/GLOBULIN RATIO 1.3 (1.0-2.2); ALKALINE PHOSPHATASE 73 IU/L (42-121); ALT ALANINE AMINOTRANSFERASE 18 IU/L (10-60); AST ASPARTATE AMINOTRANSFERASE 45 IU/L (10-42); BILIRUBIN,TOTAL 1.1 mg/dL (0.2-1.0); BUN - BLOOD UREA NITROGEN 9 mg/dL (6-20); CALCIUM 8.8 mg/dL (8.5-10.3); CARBON DIOXIDE - CO2 27 mmol/L (21-32); CHLORIDE 101 mmol/L (101-111); CREATININE 0.8 mg/dL (0.6-1.2); GFR - MDRD 102 (>89); GLUCOSE 122 mg/dL (70-100); LIPASE 57 U/L (22-51); SALICYLATE < 6.0 mg/dL; SODIUM 140 mmol/L (135-145); TOTAL PROTEIN 7.9 g/dL (6.7-8.2)
[2018-08-09 09:56] LABS: MUDS CUTOFF CONCENTRATIONS CUTOFF CONC BELOW:
[2018-08-09 10:01] LABS: BILIRUBIN,URINE NEGATIVE (NEGATIVE); GLUCOSE, URINE (UA) NEGATIVE (NEGATIVE); KETONES,URINE (UA) NEGATIVE (NEGATIVE); LEUKOCYTE ESTERASE, URINE NEGATIVE (NEGATIVE); NITRITE,URINE NEGATIVE (NEGATIVE); OCCULT BLOOD,URINE NEGATIVE (NEGATIVE); PROTEIN,URINE NEGATIVE (NEGATIVE); UROBILINOGEN,URINE 0.2 (NORMAL) E.U./dL (NORMAL)
[2018-08-09 10:05] LABS: CLARITY,URINE CLEAR (CLEAR)
[2018-08-09 10:19] LABS: AMPHETAMINE SCREEN,URINE NEGATIVE (NEGATIVE); BENZODIAZEPINES SCREEN, URINE POSITIVE (NEGATIVE); COCAINE SCREEN URINE NEGATIVE (NEGATIVE); METHADONE SCREEN, URINE NEGATIVE (NEGATIVE); METHAMPHETAMINES SCREEN, URINE NEGATIVE (NEGATIVE); OPIATE SCREEN, URINE NEGATIVE (NEGATIVE); OXYCODONE SCREEN, URINE NEGATIVE (NEGATIVE); PROPOXYPHENE SCREEN, URINE NEGATIVE (NEGATIVE); TRICYCLIC ANTIDEPRESSANT,URINE NEGATIVE (NEGATIVE)
[2018-08-09 13:55] VITALS: BP 152/89
== END 2018-08-09 13:54 | disposition home or self-care (01) ==
LOC: ED 08:09
DX: Z02.89 Encounter for other administrative examinations (principal); F10.20 Alcohol dependence, uncomplicated; F17.200 Nicotine dependence, unspecified, uncomplicated; I10 Essential (primary) hypertension
CPT/HCPCS: 36415; 80053; 80306; 80307; 80320; 80329; 81001; 81003; 83690; 84443; 85025; 87086; 99283

== ENCOUNTER 2019-01-15 08:53 | Day surgery (SDC) | payer OTHER ==
[2019-01-15] MEDS ORDERED: LACTATED RINGERS 1,000 ML IV ONE (08:58)
[2019-01-15 11:38] VITALS: BP 170/98
== END 2019-01-15 08:54 | disposition home or self-care (01) ==
LOC: SDS 08:53
PROVIDERS: ATTEND Internal Medicine Gastroenterology
PROC: 0DBP8ZZ Excision of Rectum, Via Natural or Artificial Opening Endoscopic (ICD-10-PCS; principal; 2019-01-15 10:15)
DX: Z12.11 Encounter for screening for malignant neoplasm of colon (principal); K62.1 Rectal polyp; I10 Essential (primary) hypertension; F17.221 Nicotine dependence, chewing tobacco, in remission; R73.01 Impaired fasting glucose
CPT/HCPCS: 45380; J7120

== ENCOUNTER 2019-02-02 08:19 | Outpatient (CLI) | payer OTHER ==
[2019-02-02 10:46] LABS: ALBUMIN 3.9 g/dL (3.2-5.5); ALBUMIN/GLOBULIN RATIO 1.1 (1.0-2.2); ALKALINE PHOSPHATASE 66 IU/L (42-121); ALT ALANINE AMINOTRANSFERASE 17 IU/L (10-60); AST ASPARTATE AMINOTRANSFERASE 13 IU/L (10-42); BILIRUBIN,TOTAL 0.6 mg/dL (0.2-1.0); BUN - BLOOD UREA NITROGEN 15 mg/dL (6-20); CALCIUM 8.6 mg/dL (8.5-10.3); CARBON DIOXIDE - CO2 27 mmol/L (21-32); CHLORIDE 105 mmol/L (101-111); CHOL/HDL RATIO 6.5 (<5.0); CHOLESTEROL 183 mg/dL; GFR - MDRD 78 (>89); GLUCOSE 112 mg/dL (70-100); HDL CHOLESTEROL 28 mg/dL; LDL CHOLESTEROL,CALCULATED 135 mg/dL; LDL/HDL RATIO 4.8 (<3.6); SODIUM 138 mmol/L (135-145); TOTAL PROTEIN 7.3 g/dL (6.7-8.2); VLDL CHOLESTEROL 20 mg/dL
[2019-02-02 10:51] LABS: HB2 TOTAL 15.6 g/dL; HEMOGLOBIN A1C 0.64 g/dL; HEMOGLOBIN A1C % 5.9 % (4.6-6.2)
== END 2019-02-02 08:20 | disposition home or self-care (01) ==
LOC: LAB.S 08:19
PROVIDERS: ATTEND Internal Medicine
DX: E78.1 Pure hyperglyceridemia (principal); R73.01 Impaired fasting glucose; Z12.5 Encounter for screening for malignant neoplasm of prostate
CPT/HCPCS: 36415; 80053; 80061; 83036; 83721; 84153

== ENCOUNTER 2020-03-26 10:15 | Outpatient (CLI) | payer BC ==
[2020-03-26 15:34] LABS: BASOPHILS # (AUTO) 0.1 10^3/uL (0.0-0.1); BASOPHILS % (AUTO) 0.7 %; EOSINOPHILS # (AUTO) 0.3 10^3/uL (0.0-0.7); EOSINOPHILS % (AUTO) 2.1 %; HGB - HEMOGLOBIN 13.9 g/dL (14.0-18.0); LYMPHOCYTES # (AUTO) 1.9 10^3/uL (1.5-3.5); LYMPHOCYTES % (AUTO) 16.5 %; MEAN CORPUSCULAR HGB CONC 32.4 g/dL (32.0-36.0); MEAN CORPUSCULAR VOLUME 95.8 fL (80.0-94.0); MEAN PLATELET VOLUME 8.8 fL (7.4-11.4); MONOCYTES # (AUTO) 0.6 10^3/uL (0.0-1.0); MONOCYTES % (AUTO) 4.8 %; NEUTROPHILS # (AUTO) 8.9 10^3/uL (1.5-6.6); NEUTROPHILS % (AUTO) 75.5 %; PLT - PLATELET COUNT 330 10^3/uL (130-450); RED BLOOD COUNT 4.48 10^6/uL (4.70-6.10); RED CELL DISTRIBUTION WIDTH 13.2 % (12.0-15.0); WHITE BLOOD COUNT 11.7 x10^3/uL (4.8-10.8)
[2020-03-26 16:01] LABS: ALBUMIN 3.6 g/dL (3.2-5.5); ALKALINE PHOSPHATASE 81 IU/L (42-121); ALT ALANINE AMINOTRANSFERASE 18 IU/L (10-60); AST ASPARTATE AMINOTRANSFERASE 14 IU/L (10-42); BILIRUBIN,TOTAL 0.8 mg/dL (0.2-1.0); BUN - BLOOD UREA NITROGEN 13 mg/dL (6-20); CALCIUM 8.7 mg/dL (8.5-10.3); CARBON DIOXIDE - CO2 27 mmol/L (21-32); CHLORIDE 100 mmol/L (101-111); CHOL/HDL RATIO 5.6 (<5.0); CHOLESTEROL 180 mg/dL; GLUCOSE 102 mg/dL (70-100); HDL CHOLESTEROL 32 mg/dL; LDL CHOLESTEROL,CALCULATED 129 mg/dL; SODIUM 137 mmol/L (135-145); TOTAL PROTEIN 7.2 g/dL (6.7-8.2); VLDL CHOLESTEROL 19 mg/dL
== END 2020-03-26 10:16 | disposition home or self-care (01) ==
LOC: LAB.S 10:15
PROVIDERS: ATTEND Registered Nurse
DX: F32.9 Major depressive disorder, single episode, unspecified (principal); F10.21 Alcohol dependence, in remission; I10 Essential (primary) hypertension; E78.1 Pure hyperglyceridemia; F17.200 Nicotine dependence, unspecified, uncomplicated
CPT/HCPCS: 36415; 80053; 80061; 83721; 84443; 85025

== ENCOUNTER 2022-12-22 07:16 | Outpatient (CLI) | payer BC ==
[2022-12-22 15:05] LABS: BASOPHILS # (AUTO) 0.1 10^3/uL (0.0-0.1); BASOPHILS % (AUTO) 1.1 %; EOSINOPHILS # (AUTO) 0.2 10^3/uL (0.0-0.7); EOSINOPHILS % (AUTO) 3.2 %; HCT - HEMATOCRIT 44.3 % (42.0-52.0); HGB - HEMOGLOBIN 13.9 g/dL (14.0-18.0); LYMPHOCYTES # (AUTO) 1.2 10^3/uL (1.5-3.5); LYMPHOCYTES % (AUTO) 16.9 %; MEAN CORPUSCULAR HEMOGLOBIN 31.3 pg (27.0-31.0); MEAN CORPUSCULAR HGB CONC 31.4 g/dL (32.0-36.0); MEAN CORPUSCULAR VOLUME 99.8 fL (80.0-94.0); MEAN PLATELET VOLUME 8.8 fL (7.4-11.4); MONOCYTES # (AUTO) 0.5 10^3/uL (0.0-1.0); MONOCYTES % (AUTO) 6.7 %; NEUTROPHILS # (AUTO) 5.2 10^3/uL (1.5-6.6); NEUTROPHILS % (AUTO) 71.8 %; PLT - PLATELET COUNT 288 10^3/uL (130-450); RED BLOOD COUNT 4.44 10^6/uL (4.70-6.10); WHITE BLOOD COUNT 7.2 x10^3/uL (4.8-10.8)
[2022-12-22 15:23] LABS: ALBUMIN/GLOBULIN RATIO 1.4 (1.0-2.2); ALKALINE PHOSPHATASE 66 IU/L (42-121); ALT ALANINE AMINOTRANSFERASE 10 IU/L (10-60); AST ASPARTATE AMINOTRANSFERASE 11 IU/L (10-42); BILIRUBIN,TOTAL 0.5 mg/dL (0.2-1.0); BUN - BLOOD UREA NITROGEN 19 mg/dL (6-20); CARBON DIOXIDE - CO2 30 mmol/L (21-32); CHLORIDE 104 mmol/L (101-111); CHOLESTEROL 172 mg/dL; CREATININE 1.1 mg/dL (0.6-1.3); GFR - MDRD 69 (>89); GLUCOSE 87 mg/dL (74-104); HDL CHOLESTEROL 43 mg/dL; LDL CHOLESTEROL,CALCULATED 103 mg/dL; LDL/HDL RATIO 2.4 (<3.6); POTASSIUM 4.1 mmol/L (3.5-4.5); SODIUM 138 mmol/L (135-145); TOTAL PROTEIN 6.9 g/dL (6.4-8.9); TRIGLYCERIDES 129 mg/dL (48-352); VLDL CHOLESTEROL 26 mg/dL
== END 2022-12-22 07:17 | disposition home or self-care (01) ==
LOC: LAB.S 07:16
PROVIDERS: ATTEND Registered Nurse
DX: I10 Essential (primary) hypertension (principal); E78.1 Pure hyperglyceridemia; Z12.5 Encounter for screening for malignant neoplasm of prostate
CPT/HCPCS: 36415; 80053; 80061; 83721; 84153; 85025